=== PATIENT | male | born 2000 ===

== ENCOUNTER 2020-06-27 18:11 | Emergency (ER) | payer OTHER ==
[~2020-06-27] VITALS: Ht 185.4 cm; Wt 76.7 kg
[2020-06-27] MEDS ORDERED: NEOMY/BACITRA/POLYMYXIN B OINT UD PACKET TP ONE ×2 (18:57→19:00)
--- NOTE | 2020-06-27 18:58 | NUR ---
Patient discharged to home in stable condition. Written and verbal after care instructions given. Patient verbalizes understanding of instructions. Stressed follow up or return to ER for worsening s/s.
== END 2020-06-27 19:00 | disposition home or self-care (01) ==
LOC: ER 18:20
DX: S01.342A Puncture wound with foreign body of left ear, initial encounter (principal); W26.8XXA Contact with other sharp object(s), not elsewhere classified, initial encounter; Y92.89 Other specified places as the place of occurrence of the external cause
CPT/HCPCS: A4663